=== PATIENT | male | born 1965 | race Caucasian/White ===

== ENCOUNTER 2017-11-25 09:52 | Day surgery (SDC) | payer OTHER, SELFPAY ==
[2017-11-24 10:57] VITALS: BMI 26.5
--- NOTE | 2017-11-25 | DI.RAD.S_ITS ---
PROCEDURE: XR SHOULDER LT 1V INDICATIONS: 52 year-old male with left shoulder surgery. Assess for retained needle. TECHNIQUE: Single intraoperative view of the left shoulder are acquired. COMPARISON: [facility], , SHOULDER WITHOUT CONTRAST, 09/03/2017, 17:22. FINDINGS: Bones: No fractures or dislocations. No suspicious bony lesions. There is linear lucency within the proximal humeral shaft, suggesting biceps tenodesis tract. Visualized ribs appear intact. Soft tissues: No radiopaque soft tissue foreign bodies. IMPRESSION: No retained needles within the left shoulder surgical field. Dictated by: Marino Hernandez M.D. on 11/25/2017 at 16:58 Approved by: Marino Hernandez M.D. on 11/25/2017 at 17:00
[2017-11-25 10:20] VITALS: BP 131/91; PULSE 76; RESP 16; TEMP 36.9; O2SAT 100; BMI 24.6
[2017-11-25] MEDS: LACTATED RINGERS 1,000 ML 42 ML IV ×2 (10:46→13:09)
[2017-11-25] MEDS: MIDAZOLAM 2 MG/2 ML VIAL IV ×2 (10:52→10:55)
[2017-11-25] MEDS: fentaNYL 100 MCG/2 ML INJ 50 MCG IV ×2 (10:52→10:55)
--- NOTE | 2017-11-25 11:00 | PM.PREOP ---
Pre-operative Note Interval Note Pre-op Check: History & Physical Reviewed by Physician H&P completed within 30 days and has changed as indicated here:: No Changes
--- NOTE | 2017-11-25 11:14 | SUR.PREOP ---
Block start time 1050 . Monitoring initiated and maintained throughout procedure. Oxygen and medications given per anesthesiologist instructions. Patient remained stable throughout procedure, no adverse reactions noted. Block end time 1101.
[2017-11-25] MEDS: CEFAZOLIN 2 GM/100 ML FROZ.PIGGY IV (11:18)
--- NOTE | 2017-11-25 12:03 | SUR.OPER ---
Beach chair with Camacho/Fabiola shoulder positioner. Lower body on padded OR bed. Head in foam padded head cradle, secured with straps. Non-operative arm secured <90 degrees abduction on arm positioner with gel pads. Pillow x 2 under knees. Safety belt at thigh. Cloth tape over blanket over lower legs.
[2017-11-25] MEDS: BUPIVACAINE 0.25% (PF) 30 ML VIAL INJ (12:27)
[2017-11-25] MEDS: SODIUM CHLORIDE IRRIG SOLUTION 3,000 ML, EPINEPHrine 1 MG IRR ×2 (12:32)
[2017-11-25] MEDS: CEFAZOLIN 1 GM VIAL IV (15:13)
[2017-11-25 16:31] VITALS: BP 111/59; PULSE 85; RESP 13; TEMP 36; O2SAT 95
[2017-11-25 16:40] VITALS: BP 110/80; PULSE 84; RESP 17; O2SAT 95
[2017-11-25 16:45] VITALS: BP 109/77; PULSE 81; RESP 13; TEMP 36; O2SAT 95
--- NOTE | 2017-11-25 18:57 | PM.OP.1 ---
Operative Date/Time/Diagnoses - Date of procedure: 11/25/17 Time of procedure: 11:40 Pre-op diagnosis: Left shoulder rotator cuff tear, left shoulder superior labrum anterior to posterior tear, left shoulder subacromial impingement, left shoulder long head biceps tendinopathy and left acromioclavicular osteoarthritis. Post-op diagnosis: same Procedure & Clinicians Procedure: 1. Left shoulder arthroscopic subscapularis repair. 2. Left shoulder mini open supraspinatus repair. 3. Left shoulder open biceps tenodesis. 4. Left shoulder arthroscopic labral debridement. 5. Left shoulder open distal clavicle excision. Same procedure as scheduled: Yes Indications: This is a 52-year-old [id number] male with several year history of left shoulder pain that was insidious in onset. His primary care provider obtained an MRI that showed a near full-thickness supraspinatus tear, superior labrum anterior posterior tear, acromioclavicular osteoarthritis and narrowing of the inferior glenohumeral joint. There Is benefits indications expectations of treatment options were discussed with the patient. The risks of surgery to include but not limited to infection, bleeding, damage to neurovascular structures, need for additional surgery, persistent or worsening pain, stiffness, iatrogenic chondromalacia, iatrogenic fracture, recurrent labral tears, recurrent rotator cuff tears, deep vein thrombosis, pulmonary embolism, loss of limb and loss of life were discussed with the patient. All questions were answered, the patient elected to proceed with surgery and informed consent was obtained. Surgeon: Di Aguilar Supervisor [employer]: Petey Peng Anesthesia Type: General (Endotracheal tube), Peripheral nerve block (Left shoulder scalene nerve block) and Local (10 mL of 0.25upivacaine without epinephrine) Operative Notes Findings: Grade 1 slap tear, near full-thickness supraspinatus tear, near full-thickness subscapularis tear, long head biceps tendinopathy, acromioclavicular osteoarthritis. Closure Type: primary Specimen(s): none sent Implants & Drains: None. Applied: implant(s) (5.5 mm corkscrew anchor X 3, SwiveLock anchor X 2, 6.25 mm bio-tenodesis screw.) Estimated Blood Loss (mL): 25 Blood products transfused: none Tourniquet time (min): 0 Procedure in detail: Patient was met in the preoperative hold area on the morning of surgery were reconfirmed that we had the correct patient, we were planning to do the correct procedure and the correct extremity which was the left upper extremity identified. Prior to the patient receiving any medications the operative extremity was initialed by the surgeon. The patient then under light sedation had a left interscalene nerve block performed by anesthesia. The patient was then brought back to the operating room in stable condition and placed supine on the operating room table. All bony prominences well padded and sequential compression devices were placed on the bilateral lower extremities. General anesthesia was induced without complication into the tracheal tube was placed. The patient was then positioned into the beach chair position ensuring that all bony prominences remained well padded and he remained in anatomic position. The left upper extremity was then prepped and draped in the usual sterile fashion. After final draping an additional ChloraPrep was utilized on the operative site. 3 min were allowed to elapse to enable a ChloraPrep to dry. Hussain surgical time-out where we confirmed that we had the correct patient, that we were planning to do the correct procedure and that we had the correct extremity identified. We also confirmed the patient received preoperative antibiotics, that all necessary implants were present, that all gear confirm sterile, and that no members of the operative team had any concerns. I began by making standard posterior portal incision by 1st sharply incising the skin with 11 blade and then introducing the blunt introducer into the glenohumeral joint. I then inserted my camera. I then localized the appropriate placement for a anterior portal in the rotator interval with an 18 gauge needle, and then incised the skin with 11 blade a passive switching stick into the rotator interval. I then dilated over this and placed a 5 mm cannula. I then inserted a probe and began a diagnostic examination. There is some fraying about the superior labrum anterior to posterior region in a bulbous appearance to the biceps tendon. The subscapularis tendon was partially torn. There was some chondral labral separation of the anterior labrum. The supraspinatus was torn anteriorly. There are no significant glenohumeral chondral lesions. After completing the diagnostic examination I then inserted a biter and detached the long head of the biceps near the anchor. I then inserted a sucker shaver and debrided the biceps stump as well as the tissue around the subscapularis tendon. I also released the rotator interval. I then used the sucker shaver on the bur mode to abrade the humerus at the appropriate location to reattached the subscapularis tendon. I then established a 2nd anterior portal, more inferior and medial to allow for appropriate angle of approach to the humeral head under direct visualization and placed a 7 mm cannula. I then inserted a corkscrew anchor that was double loaded with FiberWire suture after using a punch to create the hole. I then used a suture Lasso to bring 1 end of 1 suture through the subscapularis tendon, and then repeated this breaking the other end of the same suture through the subscapularis tendon, and then reduced the tendon and tied the suture ends of the mattress fashion. I then took 1 end of the remaining suture and brought this through the leading edge of the subscapularis and then tied this with the other end, bring the edge down to the humerus. I then removed all arthroscopic equipment from intra-articular, and utilizing the posterior incision I then utilized the blunt introducer to gain access to the sub acromial space and passed this all the way through to the more superior anterior incision. I then placed the 5 mm cannula over the introducer in the anterior portal. I then inserted the camera in the posterior portal and a sucker shaver through the anterior cannula and began debriding the bursa from the subacromial space. I then inserted a the Surfas wand and attached any bursa from the underlying surface of the acromion and distal clavicle. I inserted a 18 gauge needle through the acromioclavicular joint into the subacromial space and confirmed that I had debrided all the way back to the acromioclavicular joint. There were no significant spurs off the inferior aspect of the acromion. I then established a anterior lateral portal under direct visualization as well as a posterior lateral portal under direct visualization by 1st localizing with an 18 gauge needle, then making an incision in the skin with a 11 blade and the passing a switching stick into the subacromial space. In the anterolateral portal and then placed the 7 mm cannula in the posterior lateral portal I placed a 5 mm cannula. I continued my debridement of the bursa from the subacromial space as well as the subdeltoid space. I then examined the rotator cuff which posteriorly was intact. Anteriorly the supraspinatus was retracted to the level of the acromion with only a thin veil of tissue attached to the humeral head. I utilized a Surfas Wand to detach the remaining tissue. As the cuff tear was greatly retracted and the tissues swollen From the arthroscopy fluid, I then made the decision to transition to a mini open rotator cuff repair. I extended the anterolateral incision which was in line with the supraspinatus tear and then retracted the deltoid after further ream the split in line with the fibers. I then inserted a elevator and freed the edges of the supraspinatus at the tear such that the tendon was adequately mobile. I then used a rasp, and rasps the humeral head in the region of the repair. I then placed 2 corkscrew anchors that were double loaded just lateral to the articular margin of the humeral head as my medial row. I then used a scorpion to pass each of the sutures through the supraspinatus as far medially as possible. I then reduced the supraspinatus and tied each of the paired sutures. I then placed 1 limb of each of the sutures into a SwiveLock anchor, and then after utilizing the punch to create a hole at the appropriate place for the anterior anchor of the lateral row, placed a SwiveLock anchor. I then repeated this with the other limb of each of the sutures, but this time at the appropriate place for the posterior anchor for the lateral row. I cut the remaining tails of all the sutures. I then probed the repair to confirm was appropriately taut. I then turned my attention to the open biceps tenodesis and made an incision in line with the humerus on the medial arm such that the incision was approximately 1 cm proximal to the Pleitez tendon and extending 2 cm distally. After sharply incising the skin I utilized electrocautery to dissect through the subcuticular layer. I then made a small incision in the fascia overlying the musculature then bluntly dissected to the bicipital groove for localized the long-head of the biceps tendon. I then removed the tendon from the wound. Tendon was remarkable for significant amount of tenosynovitis as well as bulbous appearance. I then marked 2 cm proximal to the muscular tendinous junction and then utilized a 2. Fiber loop to whipstitch from the musculotendinous junction to this shanique. I then truncated the remainder of the tendon. I then measured the tendon to be just under 6 mm in diameter. The localized the appropriate place to tenodesis the tendon subpec in the bicipital groove and placed a guidewire unit cortically. I then drilled over the guidewire with a 6 mm drill. I then tapped the the drill hole with a 6.25 mm tap. I then took 1 limb of the fiber loop suture and brought this through a 6.25 mm tenodesis screw. I then inserted the tendon with the tenodesis screw into the hole. I then tied the 2 ends of the fiber loop over the tenodesis screw. I then cut the tails of the suture. A confirmed that the patient was able to straighten his elbow. I then turned my attention to the open distal clavicle and made a saber incision directly over the acromioclavicular joint. After incising the skin I utilized electrocautery to dissect through the subcuticular layer to the fascia. I then utilized electrocautery to incise the fascia in line with the clavicle down to the bone centered over the acromioclavicular joint. I then elevated the fascia both anteriorly and posteriorly. I then utilized a rongeur to remove the intra-articular disc from the acromioclavicular joint. I then measured 1 cm proximal to the end of the clavicle and marked this. I then utilized a sagittal saw to remove the distal cm of the clavicle. I then utilized a rasp to rasp the edges such that they \were smooth. I then thoroughly irrigated all wounds. I closed the fascial layer of the distal clavicle excision incision with 0 Polysorb in a [id number] fashion. I closed the deltoid fascia also with 0 Polysorb in [id number] fashion. I then closed the subcuticular layer of each of the incisions with 2-0 Polysorb in an interrupted buried fashion. I then closed the skin of the distal clavicle excision, biceps tenodesis, and distal clavicle excision incisions with 3-0 Biosyn in a running buried fashion. I then closed the skin of each of the portals with 3 -0 Biosyn in a buried fashion. I then injected 10 mL of 0.25% bupivacaine without epinephrine about the biceps tenodesis incision. I then placed Mastisol Steri-Strips over each of the incisions. I then dressed the incisions with sterile Xeroform, plain gauze and ABD. Medipore tape was then placed over this. The patient was woken from general anesthesia without complication. The needle count was not corrected the conclusion of the case, with 1 extra sharp identified on the field which had not been previously counted. Therefore a flat plate of the left shoulder was obtained which did not show any shorter metallic objects in the shoulder. The patient was then brought to the PACU in stable condition. Complications: none Condition: stable Disposition: PACU Plan for aftercare: The patient will be discharged home same day surgery. 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 He may remove his dressing in 5 days at which time he may shower and let water run over his incisions. I will see him back in 10-14 days for wound check at which time we will initiate physical therapy per the rotator cuff protocol.
== END 2017-11-25 17:13 | disposition home or self-care (01) ==
PROVIDERS: Visit Provider Orthopaedic Surgery
PROC: (CPT 29827; principal; 2017-11-25 11:15)
PROC: (CPT 23120; 2017-11-25 11:15)
PROC: (CPT 24341; 2017-11-25 11:15)
DX: M19.012 Primary osteoarthritis, left shoulder (principal); M75.22 Bicipital tendinitis, left shoulder; S43.432A Superior glenoid labrum lesion of left shoulder, initial encounter
CPT/HCPCS: 23430; 23120; 23412; 29822; 64450; 73020; J0171; J0330; J0690; J1100; J2250; J2704; J2795; J3010